=== PATIENT | female | born 1960 | race Caucasian/White ===

== ENCOUNTER 2016-10-26 14:15 | Day surgery (SDC) | payer OTHER ==
[~2016-10-26] VITALS: Ht 157.5 cm; Wt 50.8 kg
[2016-10-26 14:53] VITALS: Ht 157.5 cm; Wt 50.8 kg
[2016-10-26] MEDS ORDERED: SIMV40TA2 PO (14:58)
[2016-10-26 15:05] VITALS: BP 124/64; PULSE 55; RESP 16
[2016-10-26] MEDS ORDERED: LIDOCAINE 4% SOLUTION 50 ML BTL ONE (15:26)
[2016-10-26] MEDS ORDERED: MIDAZOLAM 1 MG/ML 2 ML INJ ONE ×2 (16:00)
[2016-10-26] MEDS ORDERED: FENTAnyl 50 MCG/ML VIAL ONE (16:01)
[2016-10-26 16:35] VITALS: BP 123/61; PULSE 50; RESP 14
--- NOTE | 2016-10-29 08:47 | OPR ---
DATE OF OPERATION: 10/26/2016 OPERATION PERFORMED: Esophagogastroduodenoscopy. PREOPERATIVE DIAGNOSIS: Patient presenting with history of occult GI bleeding with no significant GI complaints. Rule out peptic ulcer disease, esophagitis. POSTOPERATIVE DIAGNOSIS: Diffuse esophagitis but stomach appeared normal. Duodenum appeared normal. OPERATIVE PROCEDURE: After the informed consent was obtained, the patient was asked to lie in the left lateral side. The patient was given 3 mg Versed, 50 mcg Fentanyl as intravenous anesthesia. When the patient became somnolent, the Olympus video upper endoscope was introduced into the oropharynx, then into the esophagus. The entire esophagus showed evidence of friability and erythema, indicating diffuse esophagitis. Multiple random biopsies were obtained to rule out esophagitis. The scope was advanced into the stomach. The entire stomach was examined up to the fundus and the cardia of the stomach which appeared normal. The mucosa of the duodenum appeared normal up to the end of the third portion and the endoscope at this time was withdrawn. Biopsy was done from the antrum, the lesser curvature of the fundus to rule out any evidence of H. pylori infection. The scope at this time was withdrawn and the procedure was terminated. PLAN: Recommend omeprazole 40 mg a day. Wait for the Pathology report. Dictated By: Jorge Bright MD /nori/margot /Document#: [id number] ; [facility]
--- NOTE | 2016-10-31 11:16 | OPR ---
DATE OF OPERATION: OPERATION PERFORMED: Colonoscopy. PREOPERATIVE DIAGNOSIS: Patient presenting with history of guaiac-positive stools, rule out colorectal neoplasm, arteriovenous malformation. POSTOPERATIVE DIAGNOSES: 1. Diverticulosis. 2. Minimal external hemorrhoids. OPERATIVE PROCEDURE: After the informed written consent is obtained, patient is asked to lie on the left lateral side. Intravenous anesthesia was given, which included 4 mg of Versed and 75 mcg of fentanyl. When the patient became somnolent, an Olympus video colonoscope was introduced into the rectum. Scope was advanced all the way to the cecum. Diverticulosis noted all around the colon. No polyps. No carcinoma noted. No arteriovenous malformation noted. Scope was distensible withdrawn. On the way out, no additional abnormalities detected except minimal hemorrhoids and the procedure was terminated. PLAN: Recommend to see the patient in the office for follow-up. Dictated By: Jorge Bright MD /nori/varsha /Document#: [id number] CC: Jorge Bright MD; [place], [place];*EndCC*
== END 2016-10-26 17:18 | disposition home or self-care (01) ==
LOC: GIL 14:15
PROVIDERS: ATTEND Internal Medicine Gastroenterology
DX: Z12.11 Encounter for screening for malignant neoplasm of colon (principal); K29.50 Unspecified chronic gastritis without bleeding; K20.8 Other esophagitis
CPT/HCPCS: 43239; 88305; 88312; J2250; J3010; Z7610